=== PATIENT | male | born 1975 | race American Indian/Alaskan Native ===

== ENCOUNTER 2019-08-12 21:40 | Emergency (ER) | payer SELFPAY ==
[2019-08-12 22:10] VITALS: BP 148/88; PULSE 103
--- NOTE | 2019-08-12 22:56 | EDM.PDOC ---
ED HPI GENERAL MEDICAL PROBLEM - General Chief Complaint: Respiratory Problem Stated Complaint: SHORT OF BREATH, COUGH Time Seen by Provider: 08/12/19 22:51 Source of Information: Reports: Patient, RN Notes Reviewed History Limitations: Reports: No Limitations - History of Present Illness INITIAL COMMENTS - FREE TEXT/NARRATIVE: 44-year-old gentleman presents emergency department with a complaint of bronchitis, he states his been ill for about a week he does produce whitish- yellow sputum feels short of breath at times he is still using tobacco products. , He recently has had fevers however no fever today - Related Data Allergies Allergy/AdvReac Type Severity Reaction Status Date / Time Penicillins Allergy Hives Verified 08/12/19 22:24 Home Meds: Home Meds Buprenorphine HCl/Naloxone HCl [Suboxone 4 mg-1 mg Sl Film] 16 mg SL BID [History] Pseudoephedrine [Sudafed 12 Hour] 1 tab PO BID PRN 08/12/19 [History] Past Medical History Cardiovascular History: Reports: Hypertension Respiratory History: Reports: Bronchitis, Recurrent Gastrointestinal History: Reports: Chronic Constipation Psychiatric History: Reports: Addiction Endocrine/Metabolic History: Reports: None Hematologic History: Reports: None Immunologic History: Reports: None Oncologic (Cancer) History: Reports: None - Infectious Disease History Infectious Disease History: Reports: Chicken Pox - Past Surgical History GI Surgical History: Reports: Appendectomy, Colonoscopy, Other (See Below) Other GI Surgeries/Procedures: COLON RESECTION Endocrine Surgical History: Reports: None Neurological Surgical History: Reports: None Dermatological Surgical History: Reports: None Social & Family History - Family History Family Medical History: Noncontributory - Tobacco Use Smoking Status *Q: Current Every Day Smoker Years of Tobacco use: 2 Packs/Tins Daily: 0.5 - Caffeine Use Caffeine Use: Reports: Coffee - Recreational Drug Use Recreational Drug Use: No ED ROS GENERAL - Review of Systems Review Of Systems: See Below Constitutional: Reports: Fever HEENT: Reports: No Symptoms Respiratory: Reports: Shortness of Breath, Cough, Sputum. Denies: Wheezing Cardiovascular: Reports: No Symptoms GI/Abdominal: Reports: No Symptoms ED EXAM, GENERAL - Physical Exam Exam: See Below Exam Limited By: No Limitations General Appearance: Alert, WD/WN, No Apparent Distress Respiratory/Chest: No Respiratory Distress, Lungs Clear, Normal Breath Sounds, No Accessory Muscle Use, Chest Non-Tender Cardiovascular: Regular Rate, Rhythm, No Murmur Course - Vital Signs Last Recorded V/S: Last Vital Signs Temp 97.5 F 08/12/19 22:27 Pulse 103 H 08/12/19 22:27 Resp 16 08/12/19 22:27 BP 148/88 H 08/12/19 22:27 Pulse Ox 97 08/12/19 22:27 Departure - Departure Time of Disposition: 22:55 Disposition: Home, Self-Care 01 Condition: Fair Clinical Impression: Bronchitis - Discharge Information Instructions: Acute Bronchitis, Adult, [id number] Referrals: PCP,None [Primary Care Provider] - Additional Instructions: Take full course of antibiotics, please followup with your primary care provider in 3-5 days if not better, please call return to the emergency department with worsening of symptoms. Sepsis Event Note - Evaluation Sepsis Screening Result: Possible Sepsis Risk - Focused Exam Vital Signs: Vital Signs Temp Pulse Resp BP Pulse Ox 08/12/19 22:27 97.5 F 103 H 16 148/88 H 97 08/12/19 22:09 97.5 F 103 H 16 148/88 H 97 Date Exam was Performed: 08/12/19 Time Exam was Performed: 22:53 - Assessment/Plan Plan: Assessment Acuity = acute Site and laterality = bronchitis Etiology = suspicious for underlying bacterial cause Manifestations = cough, sputum Location of injury = Home Lab values = none Plan Like to treat empirically azithromycin 5-day course follow-up primary care 3 to 5 days if not better This note was dictated using [employer] voice recognition software please call with any questions on syntax or grammar.
== END 2019-08-12 23:31 | disposition home or self-care (01) ==
LOC: JP.ED 21:40
DX: J40 Bronchitis, not specified as acute or chronic (principal); I10 Essential (primary) hypertension; F17.200 Nicotine dependence, unspecified, uncomplicated; Z88.0 Allergy status to penicillin; Z79.899 Other long term (current) drug therapy
CPT/HCPCS: 99283; 99284

== ENCOUNTER 2019-10-28 18:42 | Emergency (ER) | payer SELFPAY ==
[2019-10-28 19:02] VITALS: BP 132/92; PULSE 107
--- NOTE | 2019-10-28 19:23 | EDM.PDOC ---
ED HPI GENERAL MEDICAL PROBLEM - General Chief Complaint: ENT Problem Stated Complaint: strep Time Seen by Provider: 10/28/19 19:17 Source of Information: Reports: Patient, RN Notes Reviewed History Limitations: Reports: No Limitations - History of Present Illness INITIAL COMMENTS - FREE TEXT/NARRATIVE: 44-year-old gentleman presents emergency department a complaint of sore throat concern he may have strep he has had strep multiple times in the past has had fevers he has been sick for about 48 hours Throat Pain Score (Numeric/FACES): 7 - Related Data Allergies Allergy/AdvReac Type Severity Reaction Status Date / Time Penicillins Allergy Hives Verified 10/28/19 18:53 Home Meds: Home Meds Buprenorphine HCl/Naloxone HCl [Suboxone 4 mg-1 mg Sl Film] 16 mg SL BID [History] Past Medical History Cardiovascular History: Reports: High Cholesterol, Hypertension Respiratory History: Reports: Bronchitis, Recurrent Gastrointestinal History: Reports: Chronic Constipation Psychiatric History: Reports: Addiction Endocrine/Metabolic History: Reports: None Hematologic History: Reports: None Immunologic History: Reports: None Oncologic (Cancer) History: Reports: None - Infectious Disease History Infectious Disease History: Reports: Chicken Pox, Measles - Past Surgical History Head Surgeries/Procedures: Reports: None GI Surgical History: Reports: Appendectomy, Colonoscopy, Other (See Below) Other GI Surgeries/Procedures: COLON RESECTION Endocrine Surgical History: Reports: None Dermatological Surgical History: Reports: None Social & Family History - Family History Family Medical History: Noncontributory - Tobacco Use Smoking Status *Q: Current Every Day Smoker Years of Tobacco use: 32 Packs/Tins Daily: 0.2 - Caffeine Use Caffeine Use: Reports: Coffee, Energy Drinks, Soda, Tea - Recreational Drug Use Recreational Drug Use: No ED ROS ENT - Review of Systems Review Of Systems: See Below Constitutional: Reports: Fever HEENT: Reports: Throat Pain, Throat Swelling Respiratory: Reports: No Symptoms Cardiovascular: Reports: No Symptoms ED EXAM, ENT - Physical Exam Exam: See Below Exam Limited By: No Limitations General Appearance: Alert, WD/WN, No Apparent Distress Mouth/Throat: Normal Inspection, Pharyngeal Erythema, Tonsillar Erythema, Tonsillar Exudates Head: Atraumatic, Normocephalic Neck: Lymphadenopathy (R), Lymphadenopathy (L) Respiratory/Chest: No Respiratory Distress, Lungs Clear, Normal Breath Sounds, No Accessory Muscle Use, Chest Non-Tender Cardiovascular: Regular Rate, Rhythm, No Murmur Course - Vital Signs Last Recorded V/S: Last Vital Signs Temp 98.2 F 10/28/19 19:00 Pulse 107 H 10/28/19 19:00 Resp 14 10/28/19 19:00 BP 132/92 H 10/28/19 19:00 Pulse Ox 97 10/28/19 19:00 Departure - Departure Time of Disposition: 19:22 Disposition: Home, Self-Care 01 Condition: Fair Clinical Impression: Streptococcal pharyngitis - Discharge Information Instructions: Strep Throat, [id number] Referrals: PCP,None [Primary Care Provider] - Additional Instructions: Take full course of antibiotics, use Tylenol and Motrin as needed for fever control, please followup with your primary care provider in 5-7 days if not better, please call return to the emergency department with worsening of symptoms. Sepsis Event Note - Evaluation Sepsis Screening Result: No Definite Risk - Focused Exam Vital Signs: Vital Signs Temp Pulse Resp BP Pulse Ox 10/28/19 19:00 98.2 F 107 H 14 132/92 H 97 Date Exam was Performed: 10/28/19 Time Exam was Performed: 19:19 - Assessment/Plan Plan: Assessment Acuity = acute Site and laterality = streptococcal pharyngitis Etiology = group A streptococcus Manifestations = none Location of injury = Home Lab values = rapid strep is positive Plan Because of his penicillin allergy he preferred treatment with azithromycin 5- day course follow-up primary care 5 to 7 days if not better This note was dictated using [employer] voice recognition software please call with any questions on syntax or grammar.
== END 2019-10-28 19:27 | disposition home or self-care (01) ==
LOC: JP.ED 18:42
DX: J02.0 Streptococcal pharyngitis (principal); I10 Essential (primary) hypertension; Z88.0 Allergy status to penicillin; F17.210 Nicotine dependence, cigarettes, uncomplicated
CPT/HCPCS: 87880-QW; 99283

== ENCOUNTER 2021-04-11 16:25 | Emergency (ER) | payer MEDICAID | END 2021-04-11 19:04 | disposition left against medical advice (07) | LOC: JP.ED 16:25 | DX: Z53.21 Procedure and treatment not carried out due to patient leaving prior to being seen by health care provider (principal) ==